=== PATIENT | male | born 1980 | race Caucasian/White ===

== ENCOUNTER 2021-07-11 11:38 | Emergency (ER) | payer BC, SELFPAY ==
--- NOTE | ~2021-07-11 | XR_ITS ---
EXAMINATION: XR thoracic spine 3V EXAM DATE: 07/11/2021 12:43 INDICATION: Working On A Deck 2 Days Ago, Upper Back Back. TECHNIQUE: Frontal and lateral projections of the thoracic spine as well as lateral swimmers projecti on of the upper thoracic spine for interpretation. There is no prior study for comparison. FINDINGS: Patient has lower thoracic diffuse idiopathic skeletal hyperostosis, with bridging endplat e osteophytes. There is no break identified through this enthesopathy. The vertebral bodies are align ed in the AP dimension. There is mild to moderate anterior wedging of T11 without acute fracture line identified. The vertebr al body and disc heights are otherwise well maintained. Paraspinal soft tissue is unremarkable. IMPRESSION: 1. T11 mild to moderate anterior wedging without acute fracture line identified , indicates most lik zora chronic finding. 2. Lower thoracic diffuse idiopathic skeletal hyperostosis. Reviewed, dictated and finalized at location A. IMPRESSION: 1. T11 mild to moderate anterior wedging without acute fracture line identifie d , indicates most likely chronic finding. 2. Lower thoracic diffuse idiopathic skeletal hyperostosis.
--- NOTE | ~2021-07-11 | XR_ITS ---
EXAMINATION: XR lumbar spine 2-3V EXAM DATE: 07/11/2021 12:43 INDICATION: Working On Deck 2 Days Ago, Lbp Since. Initial encounter. TECHNIQUE: Lumber spine frontal, lateral, lateral L5-S1 projections for interpretation. There is no prior study for comparison. FINDINGS: Lumbar vertebral bodies have heights maintained. Sacrum, sacroiliac joints, sacral arcuate lines are intact. There are no acute fractures identified. Transverse processes are intact. Disc hei ghts are maintained. There is mild to moderate lumbar facet arthropathy. Paraspinal soft tissue is un remarkable. IMPRESSION: No acute lumbar fracture. Mild to moderate facet arthropathy. Reviewed, dictated and finalized at location A.
--- NOTE | 2021-07-11 11:40 | ED.BACK ---
HPI - Back Pain/Injury General Chief Complaint: Back Pain/Injury Stated Complaint: Low Back Pain Time Seen by Provider: 07/11/21 11:40 Source: patient and RN notes reviewed History of Present Illness HPI Narrative: Patient is a 41-year-old male who presents the urgent care with complaints of acute on chronic mid to low back pain. Patient states that he broke his back 9 years ago but does not typically have any chronic back issues. Patient states that 5 days ago he was tearing up a deck and doing a lot of heavy lifting and strenuous activity. Patient states the pain started approximately 2 days ago. Patient states he has been taking Tylenol, Advil and using heat for the pain. Denies of any radiation of the pain. Denies of any loss of bowel or bladder. No other acute complaints. Patient aware of the plan of care. Some parts of this dictation were generated by voice recognition software and may contain typographical and/or grammatical inaccuracies. Related Data Allergies Allergy/AdvReac Type Severity Reaction Status Date / Time No Known Allergies Allergy Verified 07/11/21 12:17 Review of Systems Review of Systems: CONSTITUTIONAL: Denies fever, chills, or sweats. EYES: Denies visual changes, redness, or discharge. ENT: Denies rhinorrhea, congestion, sore throat, or otalgia. CARDIOVASCULAR: Denies chest pain, palpitations, or edema. RESPIRATORY: Denies cough or dyspnea. GASTROINTESTINAL: Denies abdominal pain, nausea, vomiting, or diarrhea. GENITOURINARY: Denies dysuria or hematuria. SKIN: Denies rash or itching. MUSCULOSKELETAL: Reports of acute on chronic mid to low back pain NEUROLOGIC: Denies headache, numbness, or weakness. All other systems reviewed are negative, except as documented in HPI. PMFSH Comments At the time of my signature, I reviewed and agree with the nursing past medical, surgical, social, and family history. There is no relevant family history pertinent to the patient complaint. Exam Narrative: GENERAL: This is a well-nourished, well-developed patient, in no apparent distress. HEAD: normocephalic, atraumatic. EYES: PERRL. Sclera clear/white. Vision is grossly intact. EARS: External ears normal NOSE: External nose normal with no obvious nasal discharge, nares without redness, no rhinorrhea. THROAT: Mucous membranes moist NECK: Neck supple CARDIOVASCULAR: Regular rate and rhythm without murmurs, gallops, or rubs. RESPIRATORY: Clear to auscultation. Breath sounds equal bilaterally. No wheezes, rales, or rhonchi. SKIN: warm, intact with no suspicious lesions or rash, good texture and turgor. NEURO: awake, alert, and oriented to person, place and time. There were no obvious focal neurologic abnormalities. EXTREMITIES: No clubbing, cyanosis, or edema. BACK: Positive left SLE. Moderate diffuse lumbar and thoracic tenderness. Pain severely exacerbated with twisting motion or bending at the waist Course Vital Signs Vital signs: Vital Signs Temperature 98.1 F 07/11/21 11:45 Pulse Rate 64 07/11/21 11:45 Respiratory Rate 18 07/11/21 11:45 Blood Pressure 158/97 H 07/11/21 11:45 Pulse Oximetry 99 07/11/21 11:45 Temperature 98.1 F 07/11/21 11:45 Pulse Rate 64 07/11/21 11:45 Respiratory Rate 18 07/11/21 11:45 Blood Pressure 158/97 H 07/11/21 11:45 Pulse Oximetry 99 07/11/21 11:45 Reviewed-patient is informed that they may have pre-hypertension or hypertension based on a blood pressure reading in the department. I recommend the patient call the primary care provider listed on their discharge instructions or a physician of their choice this week to arrange follow-up for further evaluation of possible pre-hypertension or hypertension. MDM - Back Pain/Injury Differential Diagnosis Differential diagnosis: Likely lumbar radiculopathy, sciatica, strain of lumbar region, renal colic and thoracic back pain Medical Records Medical records narrative: Reviewed X-ray results with the [facility]
[2021-07-11 11:45] VITALS: BP 158/97; PULSE 64; RESP 18; TEMP 36.7; O2SAT 99
== END 2021-07-11 13:05 | disposition home or self-care (01) ==
PROVIDERS: Emergency Provider Nurse Practitioner Family; PCP Internal Medicine
DX: S39.012A Strain of muscle, fascia and tendon of lower back, initial encounter (principal); X50.0XXA Overexertion from strenuous movement or load, initial encounter; G89.29 Other chronic pain; M54.50 Low back pain, unspecified
CPT/HCPCS: 72072; 72100; 99213; G0463